=== PATIENT | female | born 1990 | race Caucasian/White ===

== ENCOUNTER 2024-04-26 19:57 | Inpatient (IN) | payer SELFPAY ==
[2024-04-26] VITALS (11 sets, daily range): BP systolic 100–155; BP diastolic 54–82; PULSE 68–123; RESP 20; TEMP 36.7–37
--- NOTE | 2024-04-26 20:10 | ED.GENADUL_ITS ---
Discharge Plan Disposition Patient Disposition: Admit to [facility] Condition: Stable Discharge Details Clinical Impression: Normal labor Admit Date/Time: 04/26/24 20:10 Admit Provider: Hazel Burton Attending Provider: Hazel Burton Primary Care Provider: Unknown,Unknown ED Provider: Hannah Arias Discharge Data Discharge Date/Time-TO BE ENTERED AT DEPARTURE: 04/26/24 20:15 HPI General Mode of arrival: ambulatory . Date/Time Provider Initiated Documentation: 04/26/24 20:08 . Limitations to Documentation: no limitations . Information obtained by: patient and family . HPI Narrative: HPI: This is a 34-year-old female patient, G2, P1 at an estimated 36 weeks gestation presenting for evaluation of active labor. The patient reports that she is being followed at [facility], started to experience contractions at 10 AM, did not have a rupture of membranes or loss of fluids, and noted that her contractions were becoming increasingly frequent, prompting her to stop at the nearest hospital for assistance. The patient reports that she had a rapidly progressing labor with her first child, who is 2 years old and was born vaginally. She states that she has had care but has not had an ultrasonography performed, believes that she only has 1 fetus, but is attempting to avoid discovering the gender of her baby prior to . She has not experienced any complications, and she herself has no personal medical history. She was in her normal state of health prior to going to labor, without fever, recent injury or illness. The patient reports that she has not had nausea or vomiting, feels the contractions but does not have an intense urge to push. She did not have any complications with her prior delivery. Exam: Gen: Awake and alert, in no apparent distress HEENT: Non-icteric sclera Neck: Supple Lungs: No apparent respiratory distress, normal respiratory effort. CV: Appears well perfused, strong distal pulses Abdomen: Gravid, fundus palpable well above the umbilicus : Cervix this examination performed under supervision of GURMEET Weems, normal external female genitalia appreciated, no blood or amniotic fluid appreciated. The cervix is dilated to 6 cm, head is the presenting part. MSK: Moves 4 extremities without apparent limitation in ROM Skin: Visualized skin without rashes, cyanosis. Neuro: Normal Gait, no obvious focal deficits or facial asymmetry. Speaks in full, clear sentences. Psych: Appropriate for situation. MDM: This is a 34-year-old female patient presenting to the emergency department in labor. My differential includes but is not limited to normal active labor, I certainly considered malpositioning or male presentation though this is less consistent with our limited cervical examination. The patient is not actively delivering/. She has no complicating past medical history such as gestational diabetes, preeclampsia, or other concerning medical issue that would facilitate further emergency department workup. We reached out to our [employer] team, and the [employer] physician is on her way into the hospital. They have graciously accepted transition of the patient from the emergency department setting to the labor and delivery suite for ongoing workup and management of her /labor. The patient was transferred from this department without incident, all further care per the [employer] team. Hannah Arias MD General Stated Complaint: [employer] Medical Decision Making Quality:SDOH Health Related Social Needs: No Data to Display PFSH All Active Problems (Updated 04/26/24 @ 20:22 by Hannah Arias MD) Normal labor (Acute) Social History Smoking risk assessment performed?: No
--- NOTE | 2024-04-26 20:54 | HPE_ITS ---
Date of service: 04/26/24 Time of Service: 20:54 Assessment and Plan Assessment and plan (1) Normal labor: Status: Acute Assessment and plan: Patient presents in active labor with a fetus in the cephalic position. Noted to be 7 cm on presentation. Josue every 3 minutes. Bulging bag of water. No leaking fluid. Ultrasound confirms cephalic position. No care to this point. Laboratory studies drawn. IV access established. Group B strep culture performed and sent to the lab. Penicillin G for group B strep prophylaxis. Will obtain urine and urine drug screen. (2) No care in current : Status: Acute OB-HPI Labor/Delivery History of Present Illness Reason for Visit: in labor Chief Complaint: Uterine Contractions. RHODA Calculator Estimated Delivery Date Method Current WG Current Estimate 05/18/24 LMP (Certain) 36w 6d Comments: Patient is a 34-year-old female 2 para 1 who presented to the emergency department today with painful uterine contractions. She had a previous that she delivered in January 2022 at [facility] with Dr. Paez. She had a last menstrual period of approximately 08/12/2023. She has had no formal care with this . She reports that she has been having painful regular contractions since approximately 10 AM and presented to the ER for this tonight. Baby's been moving and active. She has had no vaginal bleeding. We have no access to her previous delivery record. She and her partner report that they have been doing care on their own, taking vitamins, eating well, living healthfully. She denies alcohol, tobacco, drug use. She had no significant complications with her previous . Their other child is at home with an uncle. She denies history of sexually transmitted infections, denies history of herpes. On presentation she was noted to be 7 cm, josue every 3 minutes with a category 1 heart rate tracing. Bedside ultrasound performed confirmed the vertex position. The patient did have an epidural with her previous labor and is requesting 1 again today. Anesthesia will be notified. In light of no care, laboratory studies will be performed including panel along with a urine and urine drug screen. CBC, type and screen. All of her questions were answered to the best my ability. She appears to be a low risk multigravid female despite no care. I would anticipate a vaginal . History of Present Expected Delivery Route/Plan Anticipate vaginal Specific Issues/Plan No care. Assessment: No Care (Laboratory studies ordered. Bedside ultrasound confirms a vertex position. Active labor, regular contractions, category 1 heart rate tracing. Group B strep is unknown. Culture performed. Penicillin G received.) Review of Systems Narrative: Patient reports painful regular contractions. No bleeding, leaking fluid. Baby has been moving and active. She denies signs or symptoms of preeclampsia. She reports that she has been doing care at home and taking vitamins but has had no formal care. Constitutional Constitutional: Reports as per HPI, Reports excessive sweating and Denies poor appetite ENT Ears, Nose, Mouth, and Throat: Reports system reviewed and no additional complaints, except as documented Cardiovascular Cardiovascular: Reports system reviewed and no additional complaints, except as documented, Denies chest pain, Denies syncope and Denies irregular heart rhythm Respiratory Respiratory: Reports system reviewed and no additional complaints, except as documented, Denies chest congestion and Denies cough Gastrointestinal Gastrointestinal: Reports system reviewed and no additional complaints, except as documented and Reports abdominal pain (Painful regular contractions) Genitourinary Comments: Uterine activity, beginning at 10 AM progressing to every 3 minutes at this point. Musculoskeletal Musculoskeletal: Reports system reviewed and no additional complaints, except as documented Integumentary/Breasts Skin/Breast: Reports system reviewed and no additional complaints, except as documented Neurologic Neurologic: Denies syncope Psychiatric Psychiatric: Reports system reviewed and no additional complaints, except as documented Endocrine Endocrine: Reports excessive sweating PFSH All Active Problems No care in current (Acute) Normal labor (Acute) Social History Smoking/Tobacco Use Status: Former Tobacco Use Smoking risk assessment performed?: Yes Alcohol Intake: never Drug use: Never Substance use type: does not use Housing: apartment Do you feel safe at home: Yes Do you feel safe in your relationship?: Yes History History 2 Para Hx # Term Pregnancies 1 Multiple births Hx # Pregnancies Ectopic pregnancies AB induced Hx Number of Living Children 1 AB spontaneous Past Pregnancies Del. Date GA/Weeks # Preg Succ Route Wgt Sex Labor Lgth Anesth esia Location Prov [facility] 01/26/23 Exam Physical Exam Vital signs: Temp Pulse Resp BP 98.1 F 123 H 20 114/81 04/26/24 20:36 04/26/24 20:36 04/26/24 20:36 04/26/24 20:36 Vital Signs Reviewed: Yes Notable Details: Tachycardia consistent with pain Constitutional Constitutional: moderate distress (Due to contractions) Detailed Labor and Delivery Exam Dilation: 7 Effacement (%): 60 station: -3 Cervix position: anterior Consistency: soft Hayward Score: Cervical Points Exam 0 1 2 3 Dilation Closed 1-2cm 3-4 cm 5-6cm Effacement 0-30% 40-50% 60-70% 80% Consistency Firm Medium Soft Station -3 -2 -1,0 +1,+2 Position Posterior Mid Anterior HAYWARD Score(Cervical Ripeness Score): 11 Amniotic Membrane Status: Intact Contraction Frequency(min): 3 Contraction Duration(sec): 60 Contraction Intensity: Strong Fetus A Heart Rate Baseline: 145 Monitor Accelerations: Present Monitor Decelerations: None Variability: Moderate (6-25 BPM) Presentation: Vertex Categories: Category I Est. Weight: 7 lb Risk Assessment Risks Reviewed Risks Reviewed Upon Admission: Yes
[2024-04-26 20:56] LABS: Abs Immature Grans 0.15 10^3/uL (0.0-0.06); Absolute Basophil Count 0.06 10^3/uL (0.0-0.2); Absolute Lymphocyte Count 1.83 10^3/uL (1.2-3.4); Basophils % 0.4 %; Eosinophils % 0.7 %; HCT 34.2 % (36.0-46.0); HGB 11.2 g/dL (11.2-15.7); Lymphocytes % 12.5 %; MCH 26.8 pg (27.0-33.0); MCHC 32.7 % (32.0-36.0); MCV 82 fL (80-95); MPV 9.7 fL (8.0-11.0); Monocytes % 7.2 %; Neutrophils % 78.2 %; Platelet Count 301 10^3/uL (130-400); RBC 4.18 10^6/uL (3.93-5.22); RDW 13.6 % (11.7-14.6); WBC 14.67 10^3/uL (4.4-10.8)
[2024-04-26 20:58] LABS: Absolute Monocyte Count 1.06 10^3/uL (0.1-0.8); Absolute Neutrophil Count 11.47 10^3/uL (1.2-6.7)
--- NOTE | 2024-04-26 21:44 | OBVDS_ITS ---
Date of service: 04/26/24 Time of Service: 21:44 OB Labor/ Delivery Information Baby A Delivery Delivery Method: Spontaneaous Presentation: Cephalic Vertex Position: Right Occipital Anterior Cord Description-Baby A: 3 Vessels Amniotic Fluid: Clear Estimated Blood Loss: 150 Delivery Outcome: Liveborn Note: Patient was 7 cm on presentation to the center. She was having strong regular contractions every 3 minutes. Bedside ultrasound confirmed fetus in the vertex position. She had a large bulging bag of water. She rapidly progressed to the point that she was completely dilated. With maternal effort the vertex was brought down to a +3 station. She had artificial rupture of membranes for clear fluid on the perineum. The vertex delivered without difficulty. There was no evidence of nuchal cord. Shoulders followed with ease. Baby was delivered to the mom's chest. Delayed cord Clamping was performed after 90 seconds. Three-vessel cord was noted and cut. Cord blood sample was obtained. The placenta was delivered spontaneously and noted to be intact. She did receive Pitocin for uterine tonicity. Female infant Abby Apgars 8 and 9 On inspection there is noted to be a second-degree midline laceration of the perineum which was repaired with 3-0 Vicryl suture after infiltrating with 1% lidocaine. Appropriate cosmetic effect and hemostasis was achieved. There was also noted to be a periurethral first-degree abrasion which was hemostatic and n ot sutured. Both mom and baby are in stable condition bonding well in the recovery phase. Qualitative blood loss was 150 cc. Providers Doctor: Hazel Burton Nurse: Vi Cmaejo Nurse: Alexandria Sanon Other: Jammie Simpson Labor/Delivery Information Steroids Given: None Reason Steroids Not Administered: N/A Group Beta Strep: Done-Result Unknown Antibiotics Administered: Yes Number of Doses of Antibiotics: 1 Shoulder Dystocia: No Stages of Labor Onset of Labor Date: 04/26/24 Onset of Labor Time: 10:00 Complete Dilatation Date: 04/26/24 Complete Dilatation Time: 21:00 Labor - Stage 1 Duration: 11 hours and 0 minutes ROM Baby A: 04/26/24 ROM Baby A: 21:10 ROM Total Time- Baby A: [id number] Infant Delivery Date-Baby A: 04/26/24 Infant Delivery Time-Baby A: 21:11 Labor Stage 2 Duration: 11 minutes Placenta Delivery Date-Baby A: 04/26/24 Placenta Delivery Time-Baby A: 21:17 Labor-Stage 3 Duration: 6 minutes Total Length of Labor-Baby A: 11 hours and 11 minutes Placenta Status: Delivered Baby A Gender: Female Gestational Status: Late (34-36.6 wks) Score-1 Minute Interval(Baby A) Heart Rate-1 minute: 100 BPM or Greater Respiratory Effort- 1 minute: Spontaneous/Strong Cry Muscle Tone-1 minute: Minimal Flexion/Extension Reflex Response-1 minute: Prompt Response Color-1 minute: Bluish Hands or Feet Total Score-1 minute: 8 Score-5 Minute Interval(Baby A) Heart Rate- 5 minute: 100 BPM or Greater Respiratory Effort-5 minute: Spontaneous/Strong Cry Muscle Tone-5 minute: Active Movement Reflex Response-5 minute: Prompt Response Color-5 minute: Bluish Hands or Feet Total Score- 5 minute: 9
[2024-04-26] MEDS: Acetaminophen 325 MG TAB 650 MG PO (23:20)
[2024-04-26] MEDS: Hamamelis Leaf/Glycerin 100 EACH BOX PR (23:20)
[2024-04-26] MEDS: Dibucaine 1% 28 GM TUBE TP (23:20)
[2024-04-26] MEDS: Ibuprofen 600 MG TAB PO (23:20)
[2024-04-26 23:52] LABS: *AMPHETAMINES SCREEN URINE Negative (Negative); *BARBITURATES SCREEN URINE Negative (Negative); *BENZODIAZEPINES SCREEN URINE Negative (Negative); Cannabinoids THC Negative (Negative); Cocaine Screen,Urine Negative (Negative); METHADONE URINE SCREEN Negative (Negative); OPIATES URINE SCREEN Negative (Negative); Tricyclic Antidepressants Negative (Negative)
[2024-04-27 03:30] VITALS: BP 112/58; PULSE 72; TEMP 36.9
[2024-04-27 06:47] LABS: HCT 30.5 % (36.0-46.0); HGB 10.1 g/dL (11.2-15.7); MCH 26.7 pg (27.0-33.0); MCHC 33.1 % (32.0-36.0); MCV 81 fL (80-95); MPV 10.3 fL (8.0-11.0); Platelet Count 267 10^3/uL (130-400); RBC 3.78 10^6/uL (3.93-5.22); RDW 13.7 % (11.7-14.6); RDW-SD 39.8 fL; WBC 18.68 10^3/uL (4.4-10.8)
[2024-04-27 16:10] VITALS: BP 124/79; PULSE 80; RESP 14; TEMP 36.7; O2SAT 98
[2024-04-27 18:35] LABS: Hepatitis B Surface Ag Negative (Negative)
--- NOTE | 2024-04-27 18:41 | W.PM.OBPNV1 ---
Date of service: 04/27/24 Time of Service: 18:42 Assessment and Plan Assessment and plan (1) (normal spontaneous vaginal delivery): Status: Acute Assessment and plan: Pt is doing well PPD#1 s/p NVD with no care during the . Will plan 48hr stay for monitoring. Subjective Subjective Narrative: Pt says she is doing well. Minimal lochia, pain well controlled. Tolerating regular diet. She is breast feeding and supplementing and working with on that. Exam Physical Exam Vital signs: Temp Pulse Resp BP Pulse Ox 98.1 F 80 14 124/79 98 04/27/24 16:10 04/27/24 16:10 04/27/24 16:10 04/27/24 16:10 04/27/24 16:10 Vital Signs Reviewed: Yes Constitutional Constitutional: no acute distress and cooperative Detailed HEENT Exam Head: Present normocephalic and atraumatic Respiratory Exam Respiratory Exam: Normal Abdominal Exam Abdomen: Tender (mildly) Fundal Exam Fundus: Below Umbilicus and Firm Extremities Exam Extremity Exam: negative Calf Tenderness or Edema Detailed Neurological Exam Neurological: Present alert, oriented X3 and CN II-XII intact Results Hemoglobin/Hematocrit: Hgb 10.1 g/dL (11.2-15.7) L 04/27/24 06:15 Hct 30.5 % (36.0-46.0) L 04/27/24 06:15 Abnormal Lab Findings: Abnormal Labs 04/26/24 04/27/24 20:45 06:15 WBC 14.67 H 18.68 H RBC 3.78 L Hgb 10.1 L Hct 34.2 L 30.5 L MCH 26.8 L 26.7 L Absolute Neutrophils 11.47 H Absolute Monocytes 1.06 H
[2024-04-27 19:09] LABS: Hepatitis C Ab w Rflx HCV PCR Negative (Negative)
[2024-04-27 19:14] LABS: HIV-1/2 Ag & Ab Screen Negative (Negative)
[2024-04-27 20:35] VITALS: BP 118/73; PULSE 80; RESP 14; TEMP 37.2; O2SAT 98
[2024-04-28 08:21] VITALS: BP 118/70; PULSE 80; RESP 16; TEMP 36.7; O2SAT 99
--- NOTE | 2024-04-28 10:15 | W.PM.OBPNV1 ---
Date of service: 04/28/24 Time of Service: 10:15 Assessment and Plan Assessment and plan (1) (normal spontaneous vaginal delivery): Status: Acute Assessment and plan: day #2 status postnormal spontaneous vaginal delivery. No care during this . Supports are given. Baby being monitored for 48 hours postdelivery due to group B strep unknown, treated x 1. Anticipate discharge home tomorrow. (2) No care in current : Status: Acute Subjective Subjective Interval history: Patient seen and examined this morning. Overall doing well. Bottlefeeding. Lochia is physiologic. Patient is having support given as she has had no care. Assistance in filling out insurance paperwork will happen today. Baby is being monitored due to group B strep unknown status post 1 dose and group B strep culture is pending. Patient's Mood: Appropriate baby status: Bottle feeding well feeding status: Exclusively formula feeding Exam Physical Exam Vital signs: Temp Pulse Resp BP Pulse Ox 98.1 F 80 16 118/70 99 04/28/24 08:21 04/28/24 08:21 04/28/24 08:21 04/28/24 08:21 04/28/24 08:21 Vital Signs Reviewed: Yes Constitutional Constitutional: no acute distress HEENT Exam HEENT Exam: Normal Respiratory Exam Respiratory Exam: Normal Cardiovascular Exam Cardiovascular Exam: Normal Abdominal Exam Comments: Soft, nontender Fundal Exam Fundus: Below Umbilicus and Firm Extremities Exam Extremity Exam: Normal; negative Calf Tenderness or Edema Results Hemoglobin/Hematocrit: Hgb 10.1 g/dL (11.2-15.7) L 04/27/24 06:15 Hct 30.5 % (36.0-46.0) L 04/27/24 06:15 Abnormal Lab Findings: Abnormal Labs 04/26/24 04/27/24 20:45 06:15 WBC 14.67 H 18.68 H RBC 3.78 L Hgb 10.1 L Hct 34.2 L 30.5 L MCH 26.8 L 26.7 L Absolute Neutrophils 11.47 H Absolute Monocytes 1.06 H
[2024-04-28 10:56] LABS: Varicella IgG Antibody Negative (See Note)
[2024-04-28 11:07] LABS: Rubella IgG Ab (UVM) Positive (See Note)
[2024-04-28 11:13] LABS: Syphilis Serology (RPR) Negative (Negative)
[2024-04-28 19:41] VITALS: BP 118/75; PULSE 80; RESP 18; TEMP 36.6
[2024-04-29 07:50] VITALS: BP 119/78; PULSE 82; RESP 20; TEMP 36.7; O2SAT 99
[2024-04-29] MEDS: Varicella Virus Vaccine (Live) 0.5 ML SC (08:32)
--- NOTE | 2024-04-29 08:43 | W.PM.OBPNV1 ---
Date of service: 04/29/24 Time of Service: 08:43 Assessment and Plan Assessment and plan (1) (normal spontaneous vaginal delivery): Status: Acute Assessment and plan: Discharge home today. Follow-up in the office in 2 weeks. Precautions given. Will have further conversation regarding contraception at her 2-week visit. Support given Subjective Subjective Interval history: Patient seen this morning. Comfortable with discharge home. Will follow-up in the office in approximately 2 weeks for a 2-week checkup. [place] baby status: Doing well and Strong Bonding Observed Exam Physical Exam Vital signs: Temp Pulse Resp BP Pulse Ox 98 F 80 18 118/75 99 04/28/24 19:41 04/28/24 19:41 04/28/24 19:41 04/28/24 19:41 04/28/24 08:21 Vital Signs Reviewed: Yes Constitutional Constitutional: no acute distress HEENT Exam HEENT Exam: Normal Neck Exam Neck Exam: Normal Respiratory Exam Respiratory Exam: Normal Cardiovascular Exam Cardiovascular Exam: Normal Abdominal Exam Comments: Abdomen soft, nontender Fundal Exam Fundus: Below Umbilicus and Firm Extremities Exam Extremity Exam: Normal; negative Calf Tenderness Neurological Exam Neurological Exam: Normal Psychiatric Exam Psychiatric Exam: Normal Results Hemoglobin/Hematocrit: Hgb 10.1 g/dL (11.2-15.7) L 04/27/24 06:15 Hct 30.5 % (36.0-46.0) L 04/27/24 06:15 Abnormal Lab Findings: Abnormal Labs 04/26/24 04/27/24 20:45 06:15 WBC 14.67 H 18.68 H RBC 3.78 L Hgb 10.1 L Hct 34.2 L 30.5 L MCH 26.8 L 26.7 L Absolute Neutrophils 11.47 H Absolute Monocytes 1.06 H
--- NOTE | 2024-04-29 08:46 | DSE_ITS ---
Date of service: 04/29/24 Time of Service: 08:46 DS: Diagnosis Discharge Diagnosis (1) (normal spontaneous vaginal delivery): Status: Acute Asessment and Plan: 2 days status post normal spontaneous vaginal delivery. Patient had no care during this . That seems to be a personal choice which may be related to finances well. She is receptive to our care here. She is apprecia tive of assistance with paperwork for Medicaid. She will be seen in the office in 2 weeks for checkup. Discharge Plan Disposition Patient Disposition: Home Condition: Good Discharge Details Reason For Visit: labor Admit Date/Time: 04/26/24 22:32 Admit Provider: Hazel Burton Attending Provider: Hazel Burton Primary Care Provider: Unknown,Unknown Hospital Course Hospital Course: Patient presented via the emergency department with uterine contractions that started approximately 10 AM. She presented to the hospital approximately 7 PM. At that point, she was noted to be 6 cm dilated and josue regularly. Confounding factors that she had no care for this . She reports appropriate housing. On initial presentation laboratory studies and urine along with drug screen were performed. All of which are relatively normal. She rapidly progressed in labor to the point that she was completely dilated. She delivered a viable female named Abby. She remained in the hospital for 48 hours postdelivery due to group B strep unknown status. Group B strep culture had been performed upon arrival. She did receive 1 dose of penicillin prior to delivery. She is discharged home day #2 ambula ting, tolerating regular diet and oral pain medication with stable vital signs. She will see us in the office in 2 weeks for further care and recommendations. Home Meds and New Rx's Prescriptions: No Action No Known Home Meds Discharge Instructions Stand Alone Forms: BC Post Vaginal Deliver Activity:: Pelvic rest Equipment/Supplies:: No Equipment Needed Diet:: As Tolerated Discharge Orders Discharge Orders: Discharge Order (Routine); Ordered 04/29/24 Ordered By: Hazel Burton OB:DS Summary Summary Vaginal Delivery Method: Spontaneaous Episiotomy Description: None Laceration Description: Perineal Laceration Extension: Second Degree Contraception Discussed Contraception Discussed: Yes Contraceptive Plan: Undecided, Infant Gender-Baby A: Female Status at Discharge Functional status at discharge: independent ambulation Overall status at discharge: patient is progressing back to baseline Mental Status: mental status grossly normal Speech and Movement: speech and movement normal Mood: congruent mood Affect: normal affect Quality:SDOH Health Related Social Needs: Health related social needs risk of homeless Exam Physical Exam Vital signs: Temp Pulse Resp BP Pulse Ox 98 F 80 18 118/75 99 04/28/24 19:41 04/28/24 19:41 04/28/24 19:41 04/28/24 19:41 04/28/24 08:21 Narrative: See physical exam from progress note dated 04/29/2024 [facility] All Active Problems (Updated 04/26/24 @ 22:11 by Hazel Burton DO) (normal spontaneous vaginal delivery) (Acute) Normal spontaneous vaginal delivery 04/26/2024. No care. Female infant Abby No care in current (Acute) Normal labor (Acute) Social History Smoking/Tobacco Use Status: Former Tobacco Use Smoking risk assessment performed?: Yes Alcohol Intake: never Drug use: Never Substance use type: does not use Housing: apartment Do you feel safe at home: Yes Do you feel safe in your relationship?: Yes History History 2 Para 1 Hx # Term Pregnancies 1 Multiple births Hx # Pregnancies Ectopic pregnancies AB induced Hx Number of Living Children 1 AB spontaneous Past Pregnancies Del. Date GA/Weeks # Preg Succ Route Wgt Sex Labor Lgth Anesth esia Location [facility] 01/26/23 DS: Data Vitals/I&O Vitals and I&O: Vital Signs Temperature 98 F 04/28/24 19:41 Temperature Source Oral 04/28/24 19:41 Pulse 80 04/28/24 19:41 Pulse Rhythm Regular 04/29/24 07:50 Respiratory Rate 18 04/28/24 19:41 Blood Pressure 118/75 04/28/24 19:41 Blood Pressure Mean 89 04/28/24 19:41 Pulse Oximetry 99 04/28/24 08:21 Oxygen Delivery Method Room Air 04/26/24 20:15 Oxygen Flow Rate 0 04/26/24 20:15 Comment Pt sleeping, FOB told to ring when pt wakes for vital signs and shift assessment 04/27/24 19:30 Data Completed and Pending Labs on day of discharge: Labs from last 24 hours 04/26/24 20:45 Syphilis Serology Negative Rubella IgG Antibody Positive VZV IgG Antibody Negative 04/26/24 20:29 Vaginal/Rectal Group B Streptococcus Culture - Pending Preliminary micro results at discharge 04/26/24 20:29 Group B Streptococcus Culture - Pending Vaginal/Rectal
[2024-05-04 01:14] LABS: Specimen WB Whole Blood
== END 2024-04-29 10:30 | disposition home or self-care (01) | DRG 807 ==
LOC: ER 20:09 → OBS 20:22
PROVIDERS: Admitting Provider Obstetrics & Gynecology; Emergency Provider Emergency Medicine; Visit Provider Obstetrics & Gynecology
DX: O70.1 Second degree perineal laceration during delivery (principal); Z37.0 Single live birth; Z3A.36 36 weeks gestation of pregnancy
CPT/HCPCS: 36415; 80307; 81329; 85027; 86787; 86803; 86850; 86900; 86901; 87340; 87389; 90716; 85025; 86592; 86762; 86870; 86880; 86885; 87081; J2540